=== PATIENT | female | born 1940 | race Caucasian/White ===

== ENCOUNTER 2017-07-26 12:31 | Inpatient (IN) | payer MEDICARE ==
[~2017-07-26] VITALS: Ht 149.9 cm; Wt 49.3 kg
[2017-07-26] MEDS ORDERED: VITAMINC500 PO (13:13)
[2017-07-26] MEDS ORDERED: ASA5UEC PO (13:14)
[2017-07-26] MEDS ORDERED: CALCIUM 500 +1 EAC6 PO (13:16)
[2017-07-26] MEDS ORDERED: CENTRUM SILVER1 EAC6 PO (13:18)
[2017-07-26] MEDS ORDERED: FISH OIL 1,001000 M2 PO (13:19)
[2017-07-26] MEDS ORDERED: TOPROL XL25 MG PO (13:27)
[2017-07-26] MEDS ORDERED: MACROBID 100 M100 M2 PO (13:30)
[2017-07-26] MEDS ORDERED: ZOLOFT25 MG PO (13:31)
[2017-07-26] MEDS ORDERED: SIMVASTATIN40 MG PO (13:33)
[2017-07-26 16:19] VITALS: BP 156/43
--- NOTE | 2017-07-26 18:43 | NUR ---
PT HAS BEEN ADMITTED TO 325 AND IS ALERT AND ORIENTATED.PT ORIENTATED TO ROOM AND CONTROLS, REHAB PROGRAM AND FALL PREVENTION AND USE OF BED AND CHAIR ALARMS. PT DENIES NEED FOR PAIN MEDICATION AT PRESENT AND REPORTS HAVING PAIN WITH MOVEMENT. PT HAS REQUESTED SOME HS MEDICATIONS SHE NORMALLY TAKES WITH SUPPER AND IS GIVEN THEM. PT HAS BRUSING TO LT OUTTER THIGH AREA AND LT ELBOW WITH 2 SMALL DRY SCABS NOTED.PT TRANSFERRED TO BED WITH MIN ASSIST OF 2 FROM W/Shlomo ALEXANDRA. HERE AND WILL BRING CLOTHING TOMORROW.PHONE AND CALL LIGHT IN REACH.
[2017-07-26 20:15] VITALS: BP 127/58
[2017-07-27 04:08] LABS: ABSOLUTE EOSINOPHILS 0.1 thou/uL (0.0-0.7); ABSOLUTE LYMPHOCYTES 1.4 thou/uL (0.8-5.3); ABSOLUTE MONOCYTES 0.6 thou/uL (0.0-1.2); BASOPHILS 0.4 %; EOSINOPHILS 2.4 %; HEMATOCRIT 37.1 % (37.0-47.0); HEMOGLOBIN 12.5 gm/dL (12.0-15.0); LYMPHOCYTES 27.8 %; MCH 33.6 pg (26.0-34.0); MCHC 33.6 g/dL (28.0-37.0); MCV 99.8 fL (80.0-100.0); MONOCYTES 11.1 %; MPV 7.8 fl. (7.2-11.1); NUCLEATED RBCS 0 /100WBC; PLATELET COUNT* 195 thou/uL (150-400); POLYS 58.3 %; RBC 3.72 mil/uL (4.20-5.00); RDW-CV 12.9 % (10.5-14.5); WBC 5.2 thou/uL (4.0-11.0)
[2017-07-27 04:39] LABS: CALCIUM 9.3 mg/dL (8.5-10.1); CREATININE 0.6 mg/dL (0.6-1.3); POTASSIUM 4.4 mmol/L (3.5-5.1)
--- NOTE | 2017-07-27 06:32 | NUR ---
PT SLEPT AT INTERVALS DURING THE NIGHT, UP WITH MINIMAL ASSIST WITH GB AND WALKER INTO THE BATHROOM, WIPES SELF AND PULLS UNDERWEAR BY SELF UP AND DOWN, DID NOT WANT PAIN MEDICINE. PLEASANT, CALL LIGHT IN REACH, BED ALARM ON FOR SAFETY, WILL CONTINUE TO MONITOR
[2017-07-27 08:13] VITALS: BP 145/47
[2017-07-27 09:06] VITALS: BP 145/47
--- NOTE | 2017-07-27 12:26 | NUR ---
Nutrition: Pt admitted to Rehab for pelvic FX. H/o vag reconstructions, bladder incontinence. Wt: 111#. No significant wt changes. Regular diet. Labs/RX noted. No nutrition concerns at this time. Will follow weekly.
--- NOTE | 2017-07-27 15:35 | NUR ---
SW met with pt family to complete initial assessment, introduce self, and SW role. (Pt was in therapy, with OT, taking a shower.) Pt lives at home with and pt was independent with ADLs and mobility prior to pelvic fracture. Pt does not have any DME or history with services. SW to continue to follow to assist with safe dc planning.
--- NOTE | 2017-07-27 16:51 | NUR ---
PT AMBULATES WITH GAITBELT,WALKER AND MIN ASSIST OF 1 WITH STEADY GAIT. PT CALLS FOR ASSIST TO BATHROOM AND VOIDS WELL. PRN TYLENOL GIVEN THIS AM WITH GOOD EFFECT AND PT HAS TOLERATED THERAPY WELL. PT IS ALERT AND ORIENTATED. PT PROGRESSES TOWARDS GOALS AND HOURLY ROUNDING CONTINUES.
[2017-07-27 20:25] VITALS: BP 129/51
--- NOTE | 2017-07-28 06:34 | NUR ---
ASSUMED CARE AT 1920. PT ALERT AND ORIENTED. PLEASANT. S/P LEFT PELVIC FX. APAP GIVEN FOR PELVIC PAIN. TAKES PILLS WHOLE WITHOUT ISSUES. REFUSED BED TIME MEDS. SHE IS A MOD ASSIST WITH GAIT BELT AND WALKER. UP TO BATHROOM. DOES OWN CARES. NEEDED ASSIST WITH LEGS INTO BED. SLEPT OFF AND ON. CALL LIGHT IN RAECH AND BED ALARM ON.
[2017-07-28 08:04] VITALS: BP 135/39
--- NOTE | 2017-07-28 17:35 | NUR ---
ASSUMED CARE OF PATIENT AT 0720. ALERT AND ORIENTED X4. ASSESSMENT COMPLETED AND CHARTED, VSS ON ROOM AIR. PATIENT IS UP SBA WITH WALKER AND GAIT BELT. WORKED WEL WITH THERAPIES TODAY. PATIENT HAS HAD MINIMAL COMLAINTS OF PAIN TODAY. PATIENT TO THE DINING ROOM FOR MEALS TODAY. HOURLY ROUNDS MAINTAINED, CALL LIGHT PLACED IN REACH, NURSING WILL CONTINUE TO MONITOR.
[2017-07-28 20:00] VITALS: BP 161/45
--- NOTE | 2017-07-29 05:15 | NUR ---
ASSUMED CARES AT 1915. PT ALERT AND ORIENTED. PLEASANT. DENIED NEED FOR ANY PAIN MED. TAKES PILLS WHOLE WITHOUT ISSUES. SHE IS A MIN-MOD ASSIST WITH GAIT BELT AND WALKER. UP TO BATHROOM. DOES OWN CARES. NEEDS ASSIST WITH LEGS INTO BED. PT DID REFUSED BEDTIME MEDS SHE BELIEVES THESE CAUSING STOMACH UPSET. SLEPT WELL. CALL LIGHT IN REACH AND BED ALARM ON.
[2017-07-29 07:55] VITALS: BP 143/40
--- NOTE | 2017-07-29 16:14 | NUR ---
PT PROGRESSING TOWARDS GOALS THIS SHIFT. VSS. AMBULATED TO DINING ROOM FOR MEALS WITH WALKER, GB, AND STB ASSIST. EATING AND DRINKING INDEPENDENTLY. PT DRESSED SELF AND PERFOMED GROOMING ACTIVITIES THIS AM INDEPENDENTLY. NO OTHER CONCERNS AT THIS TIME. CLWR. WCTM.
[2017-07-29 19:30] VITALS: BP 148/58
--- NOTE | 2017-07-30 05:59 | NUR ---
ASSUNED CARES AT 1920. PT ALERT AND ORIENTED. PLEASANT. DENIES ANY NEEDS FOR PAIN MEDS. REFUSED BED TIME MEDS WELL. SHE IS A MOD ASSIST WITH GAIT BELT AND WALKER. UP TO BATHROOM. DOES OWN CARES. SLEPT WELL MOST OF THE NIGHT. CALL LIGHT IN REACH. BED ALARM ON.
[2017-07-30 07:37] VITALS: BP 131/47
--- NOTE | 2017-07-30 15:56 | NUR ---
pt calls for assist to ambulate with gaitbelt and walker with steady gait. pt denies need for pain medication. pt is continent of b+b. pt progressing towards goals and hourly rounding continues.
[2017-07-30 20:05] VITALS: BP 148/49
--- NOTE | 2017-07-31 05:51 | NUR ---
ASSUMED CARE AT 1920. PT ALERT AND ORIENTED. PLEASANT. C/O BEING MORE SORE AND SO TYLENOL GIVEN. TAKES PILLS WITHOUT ISSUES. SHE IS A MOD ASSIST WITH GAIT BELT AND WALKER. UP TO BATHROOM. DOES OWN CARES. SLEPT WELL MOST OF THE NIGHT. NO COMPLAINTS. CALL LIGHT IN REACH AND BED ALARM ON.
[2017-07-31 07:54] VITALS: BP 128/42
--- NOTE | 2017-07-31 16:16 | NUR ---
ANGEL called pt Earl at [phone] but he did not answer so SW left a detailed message requesting call back if pt had any questions or concerns for SW to present during team conference on pt family's behalf. SW to continue to follow to assist with safe dc planning.
--- NOTE | 2017-07-31 16:29 | NUR ---
PT CALLS FOR ASSIST TO BATHROOM AND AMBULATES WITH WALKER,GAITBELT AND MIN ASSIST OF 1.PT EATS MEALS IN DINNINGROOM. PT IS CONTINENT OF B+B WITH REPORT OF LOOSE BM THIS AFTERNOON. PT DENIES PAIN.PT REMAINS ALERT AND ORIENTATED AND PROGRESSES WITH GOALS. HOURLY ROUNDING CONTINUES.
[2017-07-31 19:25] VITALS: BP 144/48
--- NOTE | 2017-08-01 00:28 | NUR ---
ASSUMED CARE @ 1904-07/31-.AWAKE IN BED W/ HOB UP WATCHING TV & VISITING W/ .SEE PAIN MANAGEMENT @ 2011.REFUSED ALL HS MEDS X4.REFUSED HEELS OFF BED-NOT RED.BED ALARM PUT ON @ 2049.TURNS SELF @ NIGHT.ON HOURLY ROUNDS.
--- NOTE | 2017-08-01 00:32 | NUR ---
ASSUMED CARE @ 1907-07/31-.AWAKE IN BED WATCHING TV.HOB UP & LUE UP ON A PILLOW.ON HIS BACK @ 1999.BED ALARM PUT ON @ 1934.BRIEF OFF @ THIS TIME.CALLS FOR URINAL W/ ASSIST.NURSE PUTS,REMOVES & EMPTIES URINAL @ NIGHT.PATIENT ONLY HOLDS URINAL.SEE POSITION CHANGE CHARTING.AWAKENED ONLY TO TURN.BOLUS PEG FEEDING GIVEN @ 2029.RESIDUAL-50 ML.SINCE PATIENT NPO AFTER MIDNIGHT-HALF PORTION OF TUBE FEEDING GIVEN @ 2345-120 ML W/ 100 ML H20 FLUSH.RESIDUAL @ 2345-5 ML.ON HOURLY ROUNDS.
--- NOTE | 2017-08-01 05:26 | NUR ---
SLEEPING SINCE 2099.MARYJANE W/ DESIREE X3.HAD MOD BM @ [facility] @ 0200.REFUSED HS SNACK.
[2017-08-01 07:38] VITALS: BP 138/43
--- NOTE | 2017-08-01 13:33 | NUR ---
ANGEL and Dr Mcdonald reviewed team conference summary with pt. Plan for pt to continue rehab therapies and for team to reassess pt length of stay during team conference next Tuesday 08/08. Pt may need RW ordered at dc. Team discussed that pt relayed that pt in putting in a bannister/railing on their stairs. Pt in agreement with plan to reteam. SW to continue to follow to assist with safe dc planning.
--- NOTE | 2017-08-01 19:22 | NUR ---
PATIENT RESTING IN BED. UP WITH ASSIT X1 AND WALKER USAGE. HOURLY ROUNDING COMPLETED FOR PATINET SAFETY.
[2017-08-01 19:30] VITALS: BP 148/51
--- NOTE | 2017-08-02 05:35 | NUR ---
ASSUMED PT CARE AT 1930. PT ALERT AND ORIENTED X4, POLITE AND COOPERATIVE WITH CARES. UP WITH MIN ASSIST, GB AND WALKER. LOOSE STOOLS X3 THIS SHIFT. PT HAS HX OF IBS. REFUSED ALL HS MEDS. TURNS SELF AT NIGHT. NO PAIN MEDS THIS SHIFT. USES CALL LIGHT APPROPRIATELY. BED ALARM ON FOR SAFETY. CALL LIGHT AND FREQUENTLY USED ITEMS WITHIN REACH. HOURLY ROUNDING IN PROGRESS, WILL CONTINUE TO MONITOR.
[2017-08-02 07:30] VITALS: BP 131/50
--- NOTE | 2017-08-02 09:54 | NUR ---
SW called pt Earl to follow up with team conference summary and plan for team to reassess pt length of stay during team conference next Sunday. Pt did not answer so SW left a detailed message about dc plans and encouraged a call back if any questions or concerns. SW to continue to follow.
--- NOTE | 2017-08-02 17:56 | NUR ---
RECEIVED REPORT FROM HARLEEN GUSTAFSON. ASSUMED CARE OF PT AROUND 0730. PT A&OX4, PLEASANT, VSS. AM ASSESSMENT AND VITALS COMPLETED CHARTED. PT HAS DENIED PAIN OR DISCOMFORT THIS SHIFT. PT UP TO THE BATHROOM WITH ASSISTANCE SEVERAL TIMES THIS SHIFT, VOIDING WITHOUT ISSUE. PT HAS PARTICIPATED WITH ALL THERAPIES THIS SHIFT AND HAS COME TO COMMUNAL DINING FOR MEALS. PT REFUSED SOME MEDICATIONS THIS SHIFT, SEE EMAR. HAS BEEN WITH PT OFF AND ON THROUGHOUT THIS SHIFT. FALL PRECAUTIONS IN PLACE. BED ALARM AND CHAIR ALARMS IN USE. CALL LIGHT IS WITHIN REACH. HOURLY ROUNDING PERFORMED. WILL CONTINUE TO MONITOR FOR DURATION OF SHIFT.
[2017-08-02 20:00] VITALS: BP 135/50
--- NOTE | 2017-08-03 05:17 | NUR ---
ASSUMED PT CARE AT 1930. PT ALERT AND ORIENTED X4, POLITE AND COOPERATIVE WITH CARES. UP WITH MIN ASSIST, GB AND WALKER. NUMEROUS LOOSE STOOLS THIS SHIFT. PT NOW ON PROBIOTIC. PT HAS HX OF IBS. REFUSED ALL HS MEDS. TURNS SELF AT NIGHT. NO PAIN MEDS THIS SHIFT. USES CALL LIGHT APPROPRIATELY. BED ALARM ON FOR SAFETY. CALL LIGHT AND FREQUENTLY USED ITEMS WITHIN REACH. HOURLY ROUNDING IN PROGRESS, WILL CONTINUE TO MONITOR.
[2017-08-03 08:00] VITALS: BP 127/64
--- NOTE | 2017-08-03 18:53 | NUR ---
PRN FOR ACHING LT LEG 1 TYLENOL GIVEN WITH GOOD EFFECT. PT CALLS FOR ASSIST TO BATHROOM AND DINNINGROOM AND AMBULATES WITH WALKER AND SBA OF 1. PT PROGRESSES TOWARDS GOALS AND HOURLY ROUNDING CONTINUES.
[2017-08-03 20:21] VITALS: BP 130/46
--- NOTE | 2017-08-04 05:35 | NUR ---
ASSUMED PT CARE AT 1930. PT ALERT AND ORIENTED, FORGETFUL. HX OF ENCEPHALOPATHY. UP WITH SBA, GAIT BELT AND WALKER. TAKES PILLS WHOLE WITH WATER WITHOUT DIFFICULTY. TYLENOL ONCE THIS SHIFT FOR SHOULDER PAIN. IN CONTACT ISOLATION FOR HX OF ESBL. EDEMA TO BILAT LE, LEG WRAPS IN PLACE. USES CALL LIGHT APPROPRIATELY. CALL LIGHT AND FREQUENTLY USED ITEMS WITHIN REACH. BED ALARM ON FOR SAFETY. HOURLY ROUNDING IN PROGRESS, WILL CONTINUE TO MONITOR.
[2017-08-04 08:10] VITALS: BP 115/57
--- NOTE | 2017-08-04 17:56 | NUR ---
ASSUMED CARE AT 0730 PATIENT ALERT/ORIENTED, NO COMPLAINTS OF PAIN THIS SHIFT UP WITH ONE WALKER/GAIT BELT. HOURLY ROUNDING COMPLETED, CALL LIGHT IN REACH, BED/CHAIR ALARMS IN PLACE, TO DINING ROOM FOR MEALS, PARTICIPATED IN ALL THERAPIES TODAY
[2017-08-04 20:24] VITALS: BP 161/53
--- NOTE | 2017-08-04 20:50 | NUR ---
PATIENT IN BED VISITING WITH GRANDSON. PT DENIES DISCOMFORT. AMBULATED TO THE BATHROOM WITH SBA, GAITBELT, WALKER. DOES OWN HYGIENE AND CLOTHING ADJUSTMENTS.
--- NOTE | 2017-08-05 05:50 | NUR ---
RESTED QUIETLY. UP TO THE TOILET AT ABOUT 0500 AND HAD A MODERATE SOFT UNFORMED BM. DID OWN KATHERINE CARE. HOURLY ROUNDING IN PROGRESS.
[2017-08-05 07:35] VITALS: BP 107/49
[2017-08-05 13:07] VITALS: BP 140/54
--- NOTE | 2017-08-05 18:06 | NUR ---
ASSUMED CARE AT 0730 PATIENT ALERT/ORIENTED, NO COMPLAINTS OF PAIN THIS SHIFT UP WITH STAND BY WITH WALKER AND GAIT BELT. HOURLY ROUNDING COMPLETED, CALL LIGHT IN REACH, BED/CHAIR ALARMS IN PLACE. TO DINING ROOM FOR MEALS.
[2017-08-05 20:11] VITALS: BP 131/63
--- NOTE | 2017-08-05 20:40 | NUR ---
RESTING QUIETLY IN BED AND WATCHING TV. EXPRESSED CONCERN ABOUT STILL HAVING LOOSE STOOLS. PATIENT HAS IBS. PATIENT THINKS IT DUE TO STRESS OF BEING IN THE HOSPITAL. WORDS OF ENCOURAGEMENT GIVEN.
--- NOTE | 2017-08-06 05:14 | NUR ---
UP X TWO DURING THE NIGHT TO THE BATHROOM. HAD DIARRHEA THE SECOND TIME. HOURLY ROUNDING IN PROGRESS.
[2017-08-06 08:07] VITALS: BP 134/54
--- NOTE | 2017-08-06 16:45 | NUR ---
PT CALLS FOR ASSIST NEEDS AND AMBULATES WITH GAITBELT AND WALKER AND SBA. PT DENIES PAIN. PT EATS MEALS IN DINNINGROOM AND AMBULATES THERE AND BACK. PT REPORTS VOIDING WELL AND CONTINUES TO HAVE LOOSE STOOLS BUT HAS TAKEN METAMUCIL TODAY. PT REMAINS ALERT AND ORIENTATED AND PROGRESSES TOWARDS GOALS. HOURLY ROUNDING CONTINUES.
--- NOTE | 2017-08-06 20:00 | NUR ---
RESTING QUIETLY IN BED AND WATCHING TV. DENIES DISCOMFORT.
[2017-08-06 20:14] VITALS: BP 129/51
--- NOTE | 2017-08-07 06:26 | NUR ---
QP X TWO DURING THE NIGHT TO THE BATHROOM. HAD A SMALL BM EACH TIME. HOURLY ROUNDING IN PROGRESS.
[2017-08-07 07:54] VITALS: BP 127/45
--- NOTE | 2017-08-07 18:07 | NUR ---
PT CALLS FOR ASSIST NEEDS AND AMBULATES TO BATHROOM AND DINNINGROOM WITH GAITBELT, WALKER AND SBA WITH STEADY GAIT. PT DENIES PAIN. PT HAS TAKEN METAMUCIL TODAY WITH STOOLS BEING THICKER,SOFT UNFORMED AND HAS STARTED ON OTHER NEW MEDICATIONS FOR STOMACH AND LOOSE STOOLS. PT REMAINS ALERT AND ORIENTATED AND PROGRESSES TOWARDS GOALS. HOURLY ROUNDING CONTINUES.
[2017-08-07 19:30] VITALS: BP 156/60
--- NOTE | 2017-08-08 01:02 | NUR ---
ASSUMED CARE @ 2029-08/07-SUNDAY.SITS IN BSCHAIR ON PHONE @ THIS TIME. SBA FOR ALL TRANSFERS & TOILETING.TURNS SELF @ NIGHT.HOB UP IN BED.BED ALARM PUT ON @ 2039.ON HOURLY ROUNDS.CONFERENCE COORDINATOR DOING ODD HOUR ROUNDS.
--- NOTE | 2017-08-08 05:19 | NUR ---
SLEPT LATE & SLEEPING @ 0000-08/08-SUN.REFUSED HS SNACK.BRP W/ SBA X3.
[2017-08-08 07:52] VITALS: BP 141/45
--- NOTE | 2017-08-08 14:08 | NUR ---
Nutrition: follow up note. Pt had diarrhea over night. She stated that she has IBS and has bouts of diarrhea/contipation intermittently. She is now taking Metamucil, which helps "bind her up" during the day, but then she has diarrhea at night. She had questions about IBS. We discussed IBS and elimination diets and fiber and dairy. She does drink lactaid and avoids dairy. She is eating 80-100% of meals currently. All questions answered.
--- NOTE | 2017-08-08 16:19 | NUR ---
ANGEL and Dr Mcdonald met with pt to review team conference summary. Plan for pt to dc home with on Thursday 08/10. SW ordered RW through [facility]. Shower chair recommended by OT and OT plans to provide the resource list for ideas on where to find a shower chair. SW provided list of options for HH agencies and SW to follow to arrange and provide referral orders and med list.
--- NOTE | 2017-08-08 16:28 | NUR ---
ASSUMED CARE AT 0730 PATIENT ALERT/ORIENTED, NO COMPLAINTS OF PAIN THIS SHIFT, UP WITH ASSIST OF ONE AND WALKER, BED/CHAIR ALARMS IN PLACE, HOURLY ROUNDING COMPLETED, TO DINING ROOM FOR MEALS, PARTICIPATED IN ALL THERAPIES TODAY. PATIENT WAS MADE MOD I IN ROOM THIS AFTERNOON WITH MOD I ON UNIT TOMORROW AND D/C TO HOME SUNDAY.
[2017-08-08 20:16] VITALS: BP 154/57
--- NOTE | 2017-08-08 21:00 | NUR ---
RESTING QUIETLY IN BED AND WATCHING TV. DENIES DISCOMFORT. MODIFIED INDEPENDENT IN ROOM WITH A WALKER. DECLINED OFFER OF A SNACK. TOOK MED WHOLE WITH WATER.
[2017-08-09 01:10] VITALS: BP 154/57
[2017-08-09] MEDS ORDERED: METAMUCIL1 EAC1 PO (01:19)
--- NOTE | 2017-08-09 05:46 | NUR ---
RESTED QUIELTLY. NO COMPLAINTS VOICED. REMAINS MODIFIED INDEPENDENT IN ROOM WITH WALKER. HOURLY ROUNDING IN PROGRESS.
[2017-08-09 08:10] VITALS: BP 118/48
--- NOTE | 2017-08-09 15:51 | NUR ---
ANGEL met with pt and pt to discuss dc planning. Pt to dc home with tomorrow and HH services to follow. Pt preference for HH is [facility] [phone] fax [phone]. ANGEL faxed referral and orders to [facility]. ANGEL ordered walker through [facility]; ANGEL discussed with PT; RW to be issued prior to pt dc. No other needs or questions expressed at this time.
--- NOTE | 2017-08-09 16:22 | NUR ---
PT IS ALERT AND ORIENTATED AND CALLS FOR ASSIST NEEDS. PT IS MOD I IN ROOM WITH WALKER. PT AMBULATES TO DINNINGROOM WITH WALKER AND SBA OF 1 WITH STEADY GAIT. PT IS CONTINENT OF B+B AND REPORTS HAVING 3 SMALL LOOSE BM'S TODAY AND SPOKE WITH DOCTOR ABOUT TAKING EXTRA DOSE OF METAMUCIL AT HS. PT PROGRESSES TOWARDS GOALS AND HOURLY ROUNDING CONTINUES.
[2017-08-09 19:46] VITALS: BP 148/55
[2017-08-10 04:30] LABS: HEMATOCRIT 36.6 % (37.0-47.0); HEMOGLOBIN 12.1 gm/dL (12.0-15.0); MCH 33.1 pg (26.0-34.0); MCHC 33.2 g/dL (28.0-37.0); MCV 99.8 fL (80.0-100.0); RBC 3.66 mil/uL (4.20-5.00); RDW-CV 12.7 % (10.5-14.5); WBC 8.8 thou/uL (4.0-11.0)
[2017-08-10 04:59] LABS: ALBUMIN 3.4 g/dL (3.4-5.0); CALCIUM 9.2 mg/dL (8.5-10.1); CREATININE 0.6 mg/dL (0.6-1.3); MAGNESIUM 1.9 mg/dL (1.8-2.4); TOTAL BILIRUBIN 0.3 mg/dL (<0.1-1.0); TOTAL PROTEIN 6.6 g/dL (6.4-8.2)
--- NOTE | 2017-08-10 05:25 | NUR ---
ASSUMED PT CARE AT 1930. PT ALERT AND ORIENTED X4, POLITE AND COOPERATIVE WITH CARES. PT IS MOD I IN ROOM. PT TOOK METAMUCIL AT HS. NO COMPLAINTS OF PAIN. USES CALL LIGHT APPROPRIATELY. PT IS TO DISCHARGE TO HOME TODAY. HOURLY ROUNDING IN PROGRESS, WILL CONTINUE TO MONITOR.
[2017-08-10 08:00] VITALS: BP 129/50
[2017-08-10 09:26] VITALS: BP 154/57
[2017-08-10 09:34] VITALS: BP 154/57
--- NOTE | 2017-08-10 13:02 | NUR ---
PATIENT ALERT/ORIENTED, NO COMPLAINTS OF PAIN, DISCHARGED TO HOME THIS AFTERNOON AFTER THERAPIES, UP INDEPENDENTLY WITH WALKER, HOME WALKER DELIVERED. HOURLY ROUNDING WAS COMPLETED. PATIENT HAS CALL LIGHT AND CALLS APPROPRIATELY. ALL D/C INSTRUCTIONS REVIEWED WITH PATIENT AND , ALL QUESTIONS ANSWERED. PATIENT HAS NO NEW MEDICATIONS. PATIENT LEFT FLOOR WITH STAFF AND TO CAR
--- NOTE | 2017-08-20 12:16 | PLAN ---
[address] [address] REHAB UNIT PLAN OF CARE Name: LEXI GLEZ Room: [address] IN [facility].#: [id number] Admission: 07/26/17 Attend Phys: Judy Mcdonald DO Discharge: 08/10/17 Date of : 38 Report #: [id number] THIS REPORT FOR: //name// CC: Judy Lui This is a 76-year-old female admitted to inpatient rehabilitation to facilitate safe discharge home, status post fall from standing height, sustaining a pelvic fracture and left pubic ramus fracture. Previous level of function was independent with activities of daily living. Current level of function is minimum to moderate assistance of one depending on therapy, activity and time of day. Comprehension and memory are within functional limits. She does have a Callejas catheter in place at this time. MEDICAL PROGNOSIS: Good. REHABILITATION PROGNOSIS: Good. Estimated length of stay is 12-14 days with discharge disposition to the home setting where she has supportive family and an accessible house. Physical Therapy will see the patient 60-90 minutes per day, 5 days per week, working on upper and lower body strength, balance, coordination, navigation. Occupational Therapy will work with the patient 60-90 minutes per day, 5 days per week, working on upper and lower body strength, balance, coordination, navigation, bathing, dressing, and toileting. This is an overall plan of care, may change from time to time. We will team her weekly and make changes to plan of care as needed. <ELECTRONICALLY SIGNED> By: Judy Mcdonald DO 08/20/17 1216 0730 [id number] Mcdonald DO /nt
--- NOTE | 2017-08-20 12:16 | H ---
[place] [address] HISTORY AND PHYSICAL Name: LEXI GLEZ Room: [address]#: [id number] Admission: 07/26/17 Attend Phys: Judy Mcdonald DO Discharge: 08/10/17 Date of : 38 Report #: [id number] THIS REPORT FOR: //name// CC: Judy Lui DATE OF SERVICE: 07/26/2017 HISTORY OF PRESENT ILLNESS: This is a 76-year-old female who presented to [facility] on 07/23/2017 after a fall at home from standing height sustaining a pelvic fracture and a left pubic ramus fracture. She did not have loss of consciousness. X-ray did show fractures mentioned above. She was previously independent with all activities of daily living. Currently, she is minimum to moderate assistance depending on therapy, activity and time of day. She is walking 50 feet with front-wheeled walker. Her comprehension, expression, social interaction was within functional limits. Currently, she has a Callejas catheter in place, but a voiding trial will be started as soon as possible. Estimated length of stay 10-12 days with discharge disposition to the home setting where she has accessible house and supportive family. She has no significant changes since the preadmission screening. PAST MEDICAL HISTORY: Hypertension, hyperlipidemia, coronary artery disease, pancreatitis, gallstones, stenosis of the brachial vein. PAST SURGICAL HISTORY: Hysterectomy, tonsillectomy, bladder surgery. ALLERGIES: MERCURY. MEDICATIONS: Reviewed and reconciled by myself and are available in the MAR. SOCIAL HISTORY: Drinks alcohol weekly. No tobacco or illicit drug use. REVIEW OF SYSTEMS: A 14-point review of systems is done and is negative except as mentioned in HPI, specifically no fever, chest pain, shortness of breath, abdominal pain or distention. PHYSICAL EXAMINATION: GENERAL: Alert, oriented, in no apparent distress. VITAL SIGNS: Reviewed and are stable. HEENT: Head atraumatic, normocephalic. Pupils equal, round, reactive. ABDOMEN: Soft, nontender, nondistended. NEUROLOGIC: Cranial nerves 2-12 are grossly intact. No focal neuro deficits, 5/5 strength in the bilateral upper and lower extremities. SKIN: Warm and dry. No rashes or lesions noted. ASSESSMENT: Status post fall from standing height, [place] [address] HISTORY AND PHYSICAL Name: LEXI GLEZ Room: [address] IN [facility]#: [id number] Admission: 07/26/17 Attend Phys: Judy Mcdonald, Discharge: 08/10/17 Date of : 38 Report #: [id number] and a left pubic ramus fracture. PLAN: 1. Admission to inpatient rehabilitation to facilitate safe discharge to home setting. 2. PT, OT, case management, nursing and HIMS to make evaluations and recommendations. 3. Plan of care is pending and we will team her weekly. <ELECTRONICALLY SIGNED> By: Judy Mcdonald DO 08/20/17 1216 0728 [id number] Mcdonald DO /nt
== END 2017-08-10 12:41 | disposition home health service (06) | DRG 535 ==
LOC: M.REH 12:31
PROVIDERS: Internal Medicine; ADMIT Physical Medicine & Rehabilitation
DX: S32.592A Other specified fracture of left pubis, initial encounter for closed fracture (principal); K85.90 Acute pancreatitis without necrosis or infection, unspecified; I87.1 Compression of vein; I10 Essential (primary) hypertension; E78.5 Hyperlipidemia, unspecified; I25.10 Atherosclerotic heart disease of native coronary artery without angina pectoris; W18.39XA Other fall on same level, initial encounter; M19.90 Unspecified osteoarthritis, unspecified site; K59.00 Constipation, unspecified; K80.80 Other cholelithiasis without obstruction; K58.1 Irritable bowel syndrome with constipation; M81.0 Age-related osteoporosis without current pathological fracture; Z90.710 Acquired absence of both cervix and uterus; Z91.048 Other nonmedicinal substance allergy status; Z87.891 Personal history of nicotine dependence; Y93.89 Activity, other specified; Y92.89 Other specified places as the place of occurrence of the external cause; Y99.8 Other external cause status; Z88.8 Allergy status to other drugs, medicaments and biological substances

== ENCOUNTER → 2017-11-20 | Outpatient (CLI) | payer MEDICARE ==
[~2017-11-20] MED LIST: ASA5UEC PO; CALCIUM 500 +1 EAC6 PO; CENTRUM SILVER1 EAC6 PO; FISH OIL 1,001000 M2 PO; MACROBID 100 M100 M2 PO; METAMUCIL1 EAC1 PO; SIMVASTATIN40 MG PO; TOPROL XL25 MG PO; VITAMINC500 PO; ZOLOFT25 MG PO
== END ==
LOC: M.RAD 09:49
DX: Z12.31 Encounter for screening mammogram for malignant neoplasm of breast (principal)

== ENCOUNTER → 2018-12-27 | Outpatient (CLI) | payer MEDICARE | LOC: M.RAD 09:47 | DX: Z12.31 Encounter for screening mammogram for malignant neoplasm of breast (principal) ==